=== PATIENT | female | born 1975 | race Caucasian/White ===

== ENCOUNTER 2021-11-15 19:04 | Emergency (ER) | payer OTHER ==
[~2021-11-15] VITALS: Ht 160 cm; Wt 81.7 kg
[~2021-11-15 19:04] MED LIST: CYMBALTA60 MG PO; PERCOCET 5-3251 EACH PO; PHENERGAN 25 MG25 MG PO; PRENATAL COMPL1 EACH PO; PROZAC40 MG PO
[2021-11-15 19:56] LABS: INFLUENZA A ANTIGEN Negative (Negative); INFLUENZA B ANTIGEN Negative (Negative)
[2021-11-15 19:56] LABS: ABSOLUTE LYMPHOCYTES 2.8 thou/uL (0.8-5.3); ABSOLUTE MONOCYTES 0.4 thou/uL (0.0-1.2); ABSOLUTE NEUTROPHILS 1.9 thou/uL (1.6-8.1); BASOPHILS 0.6 %; HEMATOCRIT 45.2 % (37.0-47.0); HEMOGLOBIN 15.3 gm/dL (12.0-15.0); LYMPHOCYTES 53.8 %; MCH 28.2 pg (26.0-34.0); MCHC 33.9 g/dL (28.0-37.0); MCV 83.1 fL (80.0-100.0); MONOCYTES 6.9 %; MPV 8.9 fl. (7.2-11.1); NUCLEATED RBCS 0 /100WBC; PLATELET COUNT* 208 thou/uL (150-400); POLYS 37.7 %; RBC 5.43 mil/uL (4.20-5.00); RDW-CV 13.4 % (10.5-14.5); WBC 5.2 thou/uL (4.0-11.0)
[2021-11-15 20:05] LABS: CALCIUM 8.3 mg/dL (8.5-10.1); CREATININE 0.8 mg/dL (0.6-1.3); POTASSIUM 3.6 mmol/L (3.5-5.1)
[2021-11-15 20:16] LABS: ALBUMIN 3.5 g/dL (3.4-5.0); TOTAL BILIRUBIN 0.4 mg/dL (<0.1-1.0); TOTAL PROTEIN 7.5 g/dL (6.4-8.2)
[2021-11-15] MEDS ORDERED: ZPAK PO (20:20)
[2021-11-15 20:38] VITALS: BP 106/74
== END 2021-11-15 20:39 | disposition home or self-care (01) ==
LOC: M.ERS 19:04
PROVIDERS: Student in an Organized Health Care Education/Training Program
DX: J18.9 Pneumonia, unspecified organism (principal); F41.9 Anxiety disorder, unspecified; F32.9 Major depressive disorder, single episode, unspecified; Z79.899 Other long term (current) drug therapy; Z88.5 Allergy status to narcotic agent